=== PATIENT | male | born 1975 | race Caucasian/White ===

== ENCOUNTER 2017-02-17 19:14 | Emergency (ER) | payer OTHER ==
[2017-03-25] MEDS ORDERED: COLACE 100MG C100 MG PO (12:51)
[2017-03-25] MEDS ORDERED: ROCEPHIN 22 G/50 ML INJ (12:51)
[2017-03-25] MEDS ORDERED: THERAGRAN TAB1 EA PO (12:51)
[2017-03-25] MEDS ORDERED: HABITROL 21 MG P1 EA TD (12:52)
[2017-03-25] MEDS ORDERED: HYDROCODON-ACE1 EAC6 PO (12:53)
[2017-05-22] MEDS ORDERED: BACTRIM DS TAB1 EACH PO (14:40)
[2017-05-22] MEDS ORDERED: PERCOCET 10-321 EACH PO (14:41)
[2017-05-22] MEDS ORDERED: NORCO 10-325 T1 EACH PO (16:03)
== END 2017-02-17 22:30 | disposition home or self-care (01) ==
LOC: ER1 19:14
DX: R05 Cough (principal); R09.81 Nasal congestion; R09.89 Other specified symptoms and signs involving the circulatory and respiratory systems; F17.210 Nicotine dependence, cigarettes, uncomplicated; J02.9 Acute pharyngitis, unspecified
CPT/HCPCS: 36415; 71020; 99283

== ENCOUNTER 2021-07-28 15:59 | Emergency (ER) | payer OTHER ==
[~2021-07-28 15:59] MED LIST: BACTRIM DS TAB1 EACH PO; BACTROBAN NASAL1 G1 TOP; COLACE 100MG C100 MG PO; HABITROL 21 MG P1 EA TD; HYDROCODON-ACE1 EAC6 PO; KEFLEX CAP 500500 MG PO; NORCO 10-325 T1 EACH PO; NORCO 5-325 TA1 EACH PO; PERCOCET 10-321 EACH PO; PERCOCET 7.5-31 EACH PO; ROCEPHIN 22 G/50 ML INJ; THERAGRAN TAB1 EA PO
[2021-07-28 16:40] LABS: BUN/CREATININE RATIO 14 (0-10)
[2021-07-28 17:03] LABS: HEMOGLOBIN 13.3 gm/dl (14.0-17.5); RED BLOOD COUNT 3.85 M/UL (4.20-5.50); WHITE BLOOD COUNT 7.2 K/UL (4.5-11.0)
[2021-07-28] MEDS ORDERED: PANTOPRAZOLE SO20 MG PO (21:26)
== END 2021-07-28 21:40 | disposition home or self-care (01) ==
LOC: ER1 15:59
PROVIDERS: Physician Assistant
DX: K59.00 Constipation, unspecified (principal); R10.12 Left upper quadrant pain; F17.200 Nicotine dependence, unspecified, uncomplicated; R09.89 Other specified symptoms and signs involving the circulatory and respiratory systems; F10.10 Alcohol abuse, uncomplicated
CPT/HCPCS: 80053; 81001; 82150; 83690; 85025; 99284; Q9967

== ENCOUNTER 2021-09-04 07:32 | Emergency (ER) | payer OTHER ==
[~2021-09-04 07:32] MED LIST changes: +PANTOPRAZOLE SO20 MG PO
[2021-09-04 08:49] LABS: HEMOGLOBIN 13.8 gm/dl (14.0-17.5); RED BLOOD COUNT 4.15 M/UL (4.20-5.50); WHITE BLOOD COUNT 8.1 K/UL (4.5-11.0)
[2021-09-04 09:10] LABS: BUN/CREATININE RATIO 12 (0-10)
[2021-09-04] MEDS ORDERED: PROVENTIL HFA6.7 GM INH (12:15)
== END 2021-09-04 11:48 | disposition home or self-care (01) ==
LOC: ER1 07:32
PROVIDERS: Physician Assistant Medical
DX: R00.2 Palpitations (principal); I10 Essential (primary) hypertension; F17.210 Nicotine dependence, cigarettes, uncomplicated; Z79.899 Other long term (current) drug therapy
CPT/HCPCS: 71045; 80053; 82550; 82553; 83735; 83874; 84439; 84443; 84484; 85025; 85379; 93005; 96374; 99285; J2405; J7030

== ENCOUNTER 2022-04-15 16:05 | Emergency (ER) | payer OTHER ==
[~2022-04-15 16:05] MED LIST changes: +PROVENTIL HFA6.7 GM INH
[2022-04-15 16:32] LABS: RED BLOOD COUNT 4.45 M/UL (4.20-5.50); WHITE BLOOD COUNT 6.9 K/UL (4.5-11.0)
[2022-04-15 17:09] LABS: BUN/CREATININE RATIO 13 (0-10)
== END 2022-04-15 18:28 | disposition left against medical advice (07) ==
LOC: ER1 16:05
PROVIDERS: Emergency Medicine
DX: M79.651 Pain in right thigh (principal); M79.652 Pain in left thigh; M79.661 Pain in right lower leg; M79.662 Pain in left lower leg; F32.A Depression, unspecified; F10.129 Alcohol abuse with intoxication, unspecified; F17.200 Nicotine dependence, unspecified, uncomplicated; Y90.8 Blood alcohol level of 240 mg/100 ml or more
CPT/HCPCS: 80053; 83605; 83735; 84100; 85025; 85652; 87040; 96361; 96374; 96375; 99283; G0480; J2270; J2405